=== PATIENT | male | born 1990 | race Caucasian/White ===

== ENCOUNTER 2017-10-01 10:44 | Emergency (ER) | payer SELFPAY ==
[2017-10-01 10:54] VITALS: TEMP 98.6
[2017-10-01] MEDS ORDERED: LET GEL TOPICAL 1 EA SYR TP ONE (11:21)
--- NOTE | 2017-10-01 11:26 | EDPHY ---
H & P Time Seen by Provider: 10/01/17 11:12 HPI/ROS: CHIEF COMPLAINT: Left foot laceration 3 days ago HISTORY OF PRESENT ILLNESS: 27-year-old male otherwise healthy accidentally stepped on a wine glass 3 days ago, complaining of laceration to his left medial great toe with paresthesia and decreased sensation distally. He went to urgent care today where he was referred to the ER after given tetanus and a dose of ampicillin. PHYSICAL EXAM (Prior to examination, patient consented to physical exam, hands were washed and my usual and customary physical exam procedures followed) 1) GENERAL: Well-developed, well-nourished, alert and oriented. Appears to be in no acute distress. 2) HEAD: Normocephalic 3) HEENT: sclera anicteric 4) LUNGS: Breathing comfortably. 5) SKIN: The patient's left ft medial aspect just medial to the 1st MTP he has a 2.5 cm laceration which is epithelializing. No signs of infection. No crepitus. No visible or palpable foreign body. 6) MUSCULOSKELETAL: Unable or unwilling to assess flexor extensor function secondary to patient's pain. 7) NEUROLOGIC: Decreased sensation distally noted on the affected side Smoking Status: Current some day smoker Constitutional: Initial Vital Signs Temperature (C) 37.0 C 10/01/17 10:51 Heart Rate 104 H 10/01/17 10:51 Respiratory Rate 18 10/01/17 10:51 Blood Pressure 140/102 H 10/01/17 10:51 O2 Sat (%) 95 10/01/17 10:51 O2 Delivery Mode Room Air Allergies/Adverse Reactions: No Known Allergies Allergy (Unverified 10/01/17 11:24) Home Medications: Medication Instructions Recorded Cephalexin [Keflex] 500 mg PO TID 7 Days cap 10/01/17 MDM/Departure - MDM Imaging Results: Imaging Impressions Foot X-Ray 10/01/17 12:20 Impression: Negative left foot radiographs. Procedures: Procedure: Splint A postoperative shoe was applied by ER oven technician. After application of the splint I returned and re-examined the patient. The splint was adequately immobilizing the joint and distal to the splint the patient's circulation and sensation were intact. Patient shows no signs of compartment syndrome. Was given orthopedic precautions. Medications Given: Discontinued Medications Tetracaine/Epinephrine/Lidocaine (Let Gel Topical) 1 ea TP EDNOW ONE Stop: 10/01/17 11:22 Last Admin: 10/01/17 11:24 Dose: 1 ea ED Course/Re-evaluation: This patient was re-evaluated with serial examinations. He has no signs of infection to his wound site which is approximately 72 hr old at this time. He has been informed that due to his delay in seeking medical attention this may change his long-term prognosis. Because of this the area will be allowed to heal via secondary intention. I am starting him on prophylactic Keflex. He is concerned about possible tendon injury. He has been informed that I am unable to adequately assess this at this time either because he is unwilling or unable to perform [id number] while in the emergency department, expresses quite a bit of pain even after analgesia administration. Doubt compartment syndrome. I have stressed the importance of follow up with Podiatry. In the meantime a started on prophylactic antibiotics, given postoperative shoe, sterile dressing , recommend elevation. He feels comfortable with this plan. All questions and concerns addressed by myself. Care of patient under supervision of secondary supervising physician Dr Salas . - Depart Disposition: Home, Routine, Self-Care Clinical Impression: Laceration of left foot Qualifiers: Encounter type: initial encounter Qualified Code(s): S91.312A - Laceration without foreign body, left foot, initial encounter Condition: Good Instructions: Laceration (ED) Additional Instructions: Return to the ER if you develop redness, swelling, discharge, warmth to the wound, red streaks going up your leg, or any other symptoms that concern you. Prescriptions: Cephalexin [Keflex] 500 mg PO TID 7 Days cap Referrals: Sabina Jimenez [Doctor of Podiatric Medicine] - 1-2 days without fail
[2017-10-01 12:57] VITALS: RESP 16
[2017-10-01 14:47] VITALS: BP 132/96; PULSE 88; O2SAT 96
== END 2017-10-01 14:46 | disposition home or self-care (01) ==
DX: S91.312A Laceration without foreign body, left foot, initial encounter (principal); F17.200 Nicotine dependence, unspecified, uncomplicated; W25.XXXA Contact with sharp glass, initial encounter; Y93.89 Activity, other specified